=== PATIENT | female | born 1970 | race Caucasian/White ===

== ENCOUNTER 2017-05-17 13:35 | Emergency (ER) | payer SELFPAY ==
[~2017-05-17] VITALS: Ht 157.5 cm; Wt 81.6 kg
[~2017-05-17 13:35] MED LIST: AMOXICILLIN PO; DICLOFENAC PO; DITROPAN5 MG PO; FLEXERIL10 MG PO; LORTAB 5/500 TA1 TA1 PO; MUCINEX DM1 TAB.SR . PO; PHENERGAN25 MG PO; POLYTRIM O10 ML OPTH OD; ZESTRIL5 MG PO
== END 2017-05-17 14:17 | disposition home or self-care (01) ==
LOC: SED 13:35
DX: H10.022 Other mucopurulent conjunctivitis, left eye (principal)
CPT/HCPCS: 99282

== ENCOUNTER 2017-05-19 00:47 | Emergency (ER) | payer SELFPAY ==
[~2017-05-19] VITALS: Ht 157.5 cm; Wt 81.6 kg
[2017-05-19] MEDS ORDERED: NO MEDICATIONS (01:01)
== END 2017-05-19 01:58 | disposition home or self-care (01) ==
LOC: SED 00:47
DX: H10.89 Other conjunctivitis (principal); I10 Essential (primary) hypertension; Z98.51 Tubal ligation status
CPT/HCPCS: 99283